=== PATIENT | male | born 1970 | race Caucasian/White ===

== ENCOUNTER 2025-03-26 23:17 | Emergency (ER) | payer OTHER | END 2025-03-27 00:10 | disposition home or self-care (01) | LOC: MADERS 23:17 | DX: K04.7 Periapical abscess without sinus (principal); K02.9 Dental caries, unspecified; R51.9 Headache, unspecified; G50.0 Trigeminal neuralgia; M26.601 Right temporomandibular joint disorder, unspecified; I10 Essential (primary) hypertension; E11.9 Type 2 diabetes mellitus without complications; E78.00 Pure hypercholesterolemia, unspecified; Z79.899 Other long term (current) drug therapy; Z79.84 Long term (current) use of oral hypoglycemic drugs; F17.210 Nicotine dependence, cigarettes, uncomplicated | CPT/HCPCS: 36416; 93005 ==